=== PATIENT | female | born 1985 | race American Indian/Alaskan Native ===

== ENCOUNTER 2018-05-12 12:01 | Outpatient (CLI) | payer BC ==
--- NOTE | 2018-05-12 13:46 | XRay Report ---
XRAY BILATERAL KNEE THREE VIEWS EACH: 05/12/18 12:01:00 CLINICAL: Bilateral chronic knee pain. FINDINGS: Right: Mild osteopenia. No fracture or dislocation. Mild medial joint osteoarthritis with small osteophytes. The joint space is normal. Normal lateral joint and patellofemoral joint. No joint effusion. Normal soft tissues. Left: Mild osteopenia. Mild medial joint osteoarthritis with narrowing of the joint space and small osteophytes. The lateral joint and patellofemoral joint are normal. No fracture or dislocation. No joint effusion.Normal soft tissues. IMPRESSION: Mild bilateral osteoarthritis
--- NOTE | 2018-05-12 13:59 | XRay Report ---
XRAY RIGHT SHOULDER THREE VIEWS: 05/12/18 12:01:00 CLINICAL: Right shoulder pain. FINDINGS: Mild osteopenia and mild degenerative change at the greater tuberosity. Normal glenohumeral alignment. Normal AC joint. No fracture or dislocation. Normal soft tissues. IMPRESSION: Mild degenerative change at the greater tuberosity suggesting possible rotator cuff disease.
== END 2018-05-12 12:02 | disposition home or self-care (01) ==
LOC: SPVIMAG 12:01
PROVIDERS: ATTEND Internal Medicine
DX: M17.0 Bilateral primary osteoarthritis of knee (principal); M19.011 Primary osteoarthritis, right shoulder